=== PATIENT | female | born 1990 | race Caucasian/White ===

== ENCOUNTER → 2020-03-17 11:55 | Outpatient (CLI) | payer OTHER, SELFPAY ==
[2020-02-23 13:50] VITALS: BMI 41.5
[2020-03-17 13:44] LABS: Prolactin 13.5 ng/mL; Thyroid Stim Hormone (TSH) 2.79 uIU/mL (0.358-3.74)
[2020-03-20 03:07] LABS: DHEA Sulfate 98.6 ug/dL (84.8-378.0)
[2020-03-20 11:49] LABS: Testosterone Free 3.7 pg/mL (0.0-4.2)
[2020-03-23 14:26] LABS: 17-Hydroxyprogesterone 40 ng/dL (.)
== END ==
PROVIDERS: PCP Nurse Practitioner Adult Health; Referring Provider Nurse Practitioner Women's Health; Visit Provider Nurse Practitioner Women's Health
DX: N97.0 Female infertility associated with anovulation (principal); N91.4 Secondary oligomenorrhea
CPT/HCPCS: 36415; 82627; 83498; 84146; 84402; 84443; 82626

== ENCOUNTER → 2020-04-19 11:47 | Outpatient (CLI) | payer OTHER, SELFPAY ==
[2020-02-23 13:50] VITALS: BMI 41.5
== END ==
PROVIDERS: PCP Nurse Practitioner Adult Health; Referring Provider Nurse Practitioner Women's Health; Visit Provider Nurse Practitioner Women's Health
DX: N97.0 Female infertility associated with anovulation (principal)
CPT/HCPCS: 36415; 84144

== ENCOUNTER → 2020-06-03 13:17 | Outpatient (CLI) | payer OTHER, SELFPAY ==
[2020-02-23 13:50] VITALS: BMI 41.5
[2020-06-03 15:41] LABS: Progesterone Level 0.36 ng/mL (See Comment)
== END ==
PROVIDERS: PCP Nurse Practitioner Adult Health; Referring Provider Nurse Practitioner Women's Health; Visit Provider Nurse Practitioner Women's Health
DX: N83.9 Noninflammatory disorder of ovary, fallopian tube and broad ligament, unspecified (principal)
CPT/HCPCS: 36415; 84144

== ENCOUNTER → 2020-07-22 13:17 | Outpatient (CLI) | payer OTHER, SELFPAY ==
[2020-02-23 13:50] VITALS: BMI 41.5
== END ==
PROVIDERS: PCP Nurse Practitioner Adult Health; Referring Provider Nurse Practitioner Women's Health; Visit Provider Nurse Practitioner Women's Health
DX: N97.0 Female infertility associated with anovulation (principal)
CPT/HCPCS: 36415; 84144

== ENCOUNTER → 2020-08-20 10:03 | Outpatient (CLI) | payer OTHER, SELFPAY ==
[2020-02-23 13:50] VITALS: BMI 41.5
[2020-08-20 11:16] LABS: Progesterone Level 0.75 ng/mL (See Comment)
== END ==
PROVIDERS: PCP Nurse Practitioner Adult Health; Visit Provider Nurse Practitioner Women's Health
DX: N97.0 Female infertility associated with anovulation (principal)
CPT/HCPCS: 36415; 84144

== ENCOUNTER 2021-03-07 16:31 | Outpatient (CLI) | payer OTHER, SELFPAY ==
[2021-03-07 17:54] LABS: Amphetamine Urine VISTA NEGATIVE (<1000 ng/mL); Barbiturate Urine VISTA NEGATIVE (< 200 ng/mL); Benzodiazepine Urine VISTA NEGATIVE (< 200 ng/mL); Cocaine Urine VISTA NEGATIVE (< 300 ng/mL); Ecstacy Urine VISTA NEGATIVE (< 500 ng/mL); Methadone Urine VISTA NEGATIVE (< 300 ng/mL); PCP Urine VISTA NEGATIVE (< 25 ng/mL); THC Urine VISTA NEGATIVE (< 50 ng/mL); Vista UDS pH Range 6
[2021-03-09 22:06] LABS: Chlamydia By Nucleic Acid AMP Negative (Negative)
[2021-03-09 22:15] LABS: Gonococcus By Nucleic Acid AMP Negative (Negative)
[2021-03-11 19:08] LABS: HPV APTIMA, High Risk Negative (Negative)
== END 2021-03-07 23:59 | disposition short-term general hospital (02) ==
LOC: LABSPEC 16:32
PROVIDERS: PCP Nurse Practitioner Adult Health; Referring Provider Obstetrics & Gynecology; Visit Provider Obstetrics & Gynecology
DX: Z34.90 Encounter for supervision of normal pregnancy, unspecified, unspecified trimester (principal); Z12.4 Encounter for screening for malignant neoplasm of cervix
CPT/HCPCS: 80307; 87086; 87088; 87491; 87591; 87624; 88175; G0145

== ENCOUNTER 2021-03-23 16:29 | Emergency (ER) | payer OTHER, SELFPAY ==
[2021-03-23 16:30] VITALS: BP 150/99; PULSE 91; RESP 18; TEMP 36.5; O2SAT 100; BMI 39.5
--- NOTE | 2021-03-23 17:32 | US_ITS ---
STUDY: ULTRASOUND OF THE FEMALE PELVIS - COMPLETE REASON FOR EXAM: Female, 31 years old. pelvic pain TECHNIQUE: Transabdominal COMPARISON: None. FINDINGS: The uterus is anteverted and is in a midline position. The uterus measures 7.6x4.3 cm. Normal uterine cervix. The endometrium measures 9 mm in thickness, and is hyperechoic. There is no demonstrated endometrial mass. There is no demonstrated myometrial mass. I.U.D. - The patient does not have an I.U.D. The right ovary is visualized. The right ovary measures 2x1.7 cm. There is no right ovarian cyst or ovarian mass. There is no visualized right adnexal mass or complex lesion. There is normal arterial and normal venous vascularity. The left ovary is visualized. The left ovary measures 2.4x1.6 cm. There is no left ovarian cyst or ovarian mass. There is no visualized left adnexal mass or complex lesion. There is normal arterial and normal venous vascularity. There is no fluid in the cul-de-sac. Debris noted in the urinary bladder. US/Transvaginal Non- IMPRESSION: Debris noted in the urinary bladder. Electronically Signed: Babatunde Lacy MD at 19:24 EST Reading Location ID and State: [facility] / [place] , Service support ,
--- NOTE | 2021-03-23 17:56 | ED.VIS.FEGU ---
HPI HPI - Female History of Present Illness Chief Complaint: Abd Pain Narrative Narrative: 31-year-old female presenting with pelvic pain. She states she miscarried on Sunday night. She has been having some spotting and bleeding intermittently. She states is not bleeding through multiple pads a day. She also specifically states she is bleeding through a pad an hour. Patient is presenting today because she is having increasing pelvic pain which is central in the lower pelvis. Patient is not had fever, chills. She has nausea. Denies GI complaints. PFSH PFSH Medical History Generalized anxiety disorder Home Medications sertraline 50 mg tablet 50 mg PO DAILY #90 tablet 02/02/21 [Rx Last Taken Unknown] cholecalciferol (vitamin D3) 125 mcg (5,000 unit) capsule 125 mcg PO DAILY 02/25/21 [History Last Taken Unknown] omeprazole magnesium 20 mg tablet,delayed release 20 mg PO DAILY 02/25/21 [History Last Taken Unknown] prenat.vits,lizzeth,emo-zfjd-sxpnl 1 tab PO DAILY 02/25/21 [History Last Taken Unknown] ondansetron 4 mg PO Q8H PRN #14 tab 03/23/21 [Rx Last Taken Unknown] Allergy/AdvReac Type Severity Reaction Status Date / Time amoxicillin [From Augmentin] Allergy Mild hives Verified 03/23/21 16:30 clavulanic acid Allergy Mild hives Verified 03/23/21 16:30 [From Augmentin] Family History Father Myocardial infarction Systemic mastocytosis Surgical History S/P tonsillectomy Social History adopted: No household members: spouse current occupational status: employed current occupation: [employer] pets and animals: Yes pets and animals: cat(s) and dog(s) Smoking Status: Never smoker alcohol intake: current alcohol intake frequency: holidays/special occasions only details: not while substance use type: does not use caffeine: Yes (minimal) what type of physical activity do you participate in: walking frequency: 3-4 times per week seatbelt use: always do you feel safe at home: Yes 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 ROS ROS ED Constitutional Constitutional ED: Denies chills or fever(s) Eyes Eyes: Denies blurry vision or diplopia ENT ENT ED: Denies rhinorrhea or sore throat Cardiovascular Cardiovascular: Denies chest pain or palpitations Respiratory/Chest Respiratory/Chest: Denies cough or dyspnea Gastrointestinal Gastrointestinal: Reports abdominal pain, nausea and vomiting Genitourinary Genitourinary ED: Denies dysuria or hematuria Musculoskeletal Musculoskeletal: Denies arthralgias or myalgias Integumentary Denies abscess or rash Neurologic Neurologic: Denies headache(s) or paresthesias Psychiatric Psychiatric: Denies anxiety or depression EXAM Physical Exam Const Vital Signs: 03/23/21 16:30 03/23/21 19:03 03/23/21 22:03 Temperature 97.7 F L Temperature Source Temporal Pulse Rate 91 67 Respiratory Rate 18 18 18 Blood Pressure 150/99 H Blood Pressure Mean 116 Pulse Ox 100 99 Oxygen Delivery Method Room Air Room Air Positive well nourished General Appearance ED: NAD; Negative for pallor HEENT Reports moist mucous membranes Negative for trauma Eyes PERRL and EOMs intact bilaterally Cardio regular rate and regular rhythm adnexae non-tender and no adnexal masses Narrative: Pelvic pain in the midline. Abdomen nonperitoneal. Neuro oriented x3 Sensorium / Orientation: alert Psych mental status grossly normal Skin General Skin Exam: Negative for jaundice or pallor MDM MDM MDM Narrative Medical decision making narrative: Blood work was obtained and the patient has a slight leukocytosis of 12.6. Hemoglobin hematocrit are stable. Platelets are normal. Renal function and electrolytes within normal limits. LFTs are normal. Urinalysis is negative for infection but does show some occult blood. Patient is currently having some spotting secondary to miscarriage recently. Transvaginal ultrasound is negative for retained products of conception. It is noted that she has some debris in her urinary bladder. Patient reevaluated and still feeling improved after morphine and Zofran. I did obtain a CT of the abdomen pelvis which did not identify anything within the bladder. Her kidneys and ureters were normal. No kidney stones were found. Patient counseled on these findings and is comfortable being discharged home. She does not wanting for pain but does request something for nausea. Patient will follow up with her DOG HAIR CLIPPER to ensure resolution. Impression: 1. Pelvic pain 2. Nausea/vomiting 3. History of recent miscarriage Lab Data Labs: Laboratory Results - last 24 hr 03/23/21 03/23/21 03/23/21 19:19 19:19 19:50 WBC 12.6 H RBC 4.27 Hgb 13.6 Hct 39.1 MCV 91.6 MCH 31.9 MCHC 34.8 RDW Std Deviation 41.6 RDW Coeff of Jun 12.6 Plt Count 306 MPV 8.1 Immature Gran % (Auto) 0.300 Neut % (Auto) 71.5 H Lymph % (Auto) 22.6 Russell % (Auto) 3.5 Eos % (Auto) 1.7 Baso % (Auto) 0.4 Absolute Neuts (auto) 9.0 H Absolute Lymphs (auto) 2.86 Nucleated RBC % 0 Sodium 141 Potassium 4.3 Chloride 108 H Carbon Dioxide 29.0 Anion Gap 4 L BUN 11 Creatinine 0.68 Estim Creat Clear Calc 120.92 Est GFR (MDRD) Af Amer 129 Est GFR (MDRD) Non-Af 107 BUN/Creatinine Ratio 16.2 Glucose 107 H Calcium 9.2 Total Bilirubin 0.20 AST 20 ALT 17 Alkaline Phosphatase 92 Total Protein 7.5 Albumin 3.5 Globulin 4.0 Albumin/Globulin Ratio 0.9 Urine Color Yellow Urine Clarity Clear Urine pH 7.0 Ur Specific [place] 1.010 Urine Protein 15 H Urine Glucose (UA) Normal Urine Ketones Negative Urine Occult Blood 250 H Urine Nitrite Negative Urine Bilirubin Negative Urine Urobilinogen Normal Ur Leukocyte Esterase 25 H Urine RBC 10-25 SEEN Urine WBC 0-5 SEEN Ur Squamous Epith Cells 0-5 SEEN Urine Bacteria 1+ Urine Mucus 0 SEEN Radiography Diagnostic Testing: Clinical Impression(s) from Imaging Studies Transvaginal US 03/23/21 17:32 IMPRESSION: Debris noted in the urinary bladder. Electronically Signed: Babatunde Lacy MD at 19:24 EST Reading Location ID and State: [facility] / [place] , Service support , Abdomen/Pelvis CT 03/23/21 20:41 Discharge Plan Triage Chief Complaint: Abd Pain Other Complaint: Vag Bleeding ED Provider: Segundo Deshpande Dx/Rx/DC Orders Instructions: ED Abdominal Pain Unkn Cause Fem Prescriptions: New ondansetron 4 mg tablet,disintegrating 4 mg PO Q8H PRN (Reason: nausea and vomiting) Qty: 14 RF: 0 No Action prenat.vits,lizzeth,muc-nbph-wrkic Tablet 1 tab PO DAILY RF: 0 omeprazole magnesium [Prilosec OTC] 20 mg tablet,delayed release (DR/EC) 20 mg PO DAILY RF: 0 cholecalciferol (vitamin D3) 125 mcg (5,000 unit) capsule 125 mcg PO DAILY RF: 0 sertraline [Zoloft] 50 mg tablet 50 mg PO DAILY Qty: 90 RF: 0 Primary Care Provider: Lizbet Ryan NP Referrals: Lizbet Ryan NP, SENIOR CIVIL ENGINEER-C [Primary Care Provider] - Disposition Disposition: Home, Self Care Discharge Date/Time: 03/23/21 22:04
[2021-03-23] MEDS: Ondansetron 4 MG/2 ML Vial IV ×2 (18:17→22:00)
[2021-03-23] MEDS: Morphine 4 MG/ML Syringe IV (18:17)
[2021-03-23 19:03] VITALS: PULSE 67; RESP 18; O2SAT 99
--- NOTE | 2021-03-23 19:04 | ED.RN ---
RN called lab to see if someone could come up and draw patients blood due to being unsuccessful by multiple RNs. Sharyn in lab states Grey has that patient on her list and should be up shortly.
[2021-03-23 19:27] LABS: Absolute Lymphocyte Count 2.86 X10^3/uL (0.83-4.51); Basophil# 0.05 X10^3/uL; Basophil% 0.4 % (0-1); Eosinophil# 0.21 X10^3/uL; Eosinophils% 1.7 % (0-5); Hematocrit 39.1 % (37-47); Hemoglobin 13.6 g/dL (12.0-15.0); Lymphocyte # 2.86 X10^3/ul (0.83-4.51); Lymphocyte % 22.6 % (19-41); Mean Corp Hgb Conc 34.8 g/dL (32-36); Mean Corpuscular Hgb 31.9 pg (27.0-32.0); Mean Corpuscular Volume 91.6 fL (81-99); Mean Platelet Vol. 8.1 fl (6.2-12.0); Monocyte# 0.44 X10^3/uL; Monocyte% 3.5 % (0-10); NRBC Flagged by Analyzer 0 % (0-5); Neutrophil # 9.03 X10^3/uL (2.7-7.7); Neutrophil % 71.5 % (47-70); Platelet Count 306 K/mm3 (150-450); RBC Distribution Width CV 12.6 % (11.6-14.6); RBC Distribution Width SD 41.6 fl (35.1-43.9); Red Blood Count 4.27 M/mm3 (4.2-5.4); White Blood Count 12.6 K/mm3 (4.4-11.0)
[2021-03-23] MEDS: 0.9% Normal Saline 1,000 ML 999 ML IV (19:32)
[2021-03-23 19:46] LABS: ALB/GLOB Ratio 0.9 RATIO (0.9-2.4); AST(SGOT) 20 U/L (15-37); Alanine Aminotransfer ALT/SGPT 17 U/L (13-56); Albumin, Serum 3.5 g/dL (3.2-5.0); Alkaline Phosphatase 92 U/L (45-117); Anion Gap 4 (5-15); BUN 11 mg/dL (7-18); BUN/Creat Ratio 16.2 RATIO (10-20); Calcium,Total 9.2 mg/dL (8.5-10.1); Chloride 108 mmol/L (98-107); Creatinine, Serum 0.68 mg/dL (0.55-1.02); EST Glomerular Filtration Rate 107 mL/min (>60); Est Glom Filt Rate - Afr Amer 129 mL/min (>60); Estimated Creatinine Clearance 120.92 ml/min; Glucose 107 mg/dL (74-106); Potassium 4.3 mmol/L (3.5-5.1); Protein, Total 7.5 g/dL (6.4-8.2); Sodium Level 141 mmol/L (136-145)
[2021-03-23 19:59] LABS: Mucous, Urine 0 SEEN /hpf (<or=2+)
[2021-03-23 20:02] LABS: Color, Urine Yellow (Yellow); Glucose, Dipstick Normal (Normal); Ketone-Dipstick Negative (Negative); Leukocyte Esterase-Dipstick 25 /ul (Negative); Nitrite-Dipstick Negative (Negative); Occult Blood-Urine 250 /ul (Negative); Protein-Dipstick 15 mg/dl (Negative); Urine Bilirubin Dipstick Negative (Negative); Urine Clarity Clear (Clear); Urine Urobilinogen Normal (Normal)
[2021-03-23 20:22] LABS: White Blood Cells 0-5 SEEN /hpf (0-5)
[2021-03-23 20:23] LABS: Red Blood Cells-Urine 10-25 SEEN /hpf (0-5); Squamous Epithelial Cells - UA 0-5 SEEN /hpf (5-10)
[2021-03-23 20:24] LABS: Bacteria 1+ /hpf (None Seen)
--- NOTE | 2021-03-23 20:41 | CT_ITS ---
STUDY: CT Abdomen And Pelvis W/O Contrast Injection 03/23/2021 9:12 PM REASON FOR EXAM: Female, 31 years old. ABDOMINAL PAIN abdominal pain TECHNIQUE: Transaxial images were obtained without oral contrast, and without intravenous contrast. Individualized dose optimization techniques were used for this CT. COMPARISON: None. FINDINGS: The visualized lung bases are unremarkable. The visualized portions of the heart are within normal limits. Normal liver. Normal gallbladder and extrahepatic biliary system. Normal spleen. Normal pancreas. Normal bilateral adrenal glands. No acute findings of the right kidney. No acute findings of the left kidney. Normal visualized stomach. Normal small intestine. Stool throughout the colon. The appendix is visualized and appears normal. There are no acute findings of the abdominal aorta. Normal inferior vena cava. Subcentimeter mesenteric lymph nodes. Normal urinary bladder. Normal visualized uterus. There is an umbilical hernia containing fat. Normal osseous structures. IMPRESSION: (NOT LISTED IN ORDER OF SIGNIFICANCE) There are no acute findings. Other findings as above. Electronically Signed: Babatunde Lacy MD at 21:14 [facility] Reading Location ID and State: [facility] / [place] , Service support , CT/Abdomen/Pelvis without Cont
[2021-03-23 22:03] VITALS: RESP 18
== END 2021-03-23 22:04 | disposition home or self-care (01) ==
PROVIDERS: Emergency Provider Student in an Organized Health Care Education/Training Program; PCP Nurse Practitioner Adult Health; Visit Provider Student in an Organized Health Care Education/Training Program
DX: R10.2 Pelvic and perineal pain (principal); R11.2 Nausea with vomiting, unspecified; D72.829 Elevated white blood cell count, unspecified; F41.1 Generalized anxiety disorder; Z79.899 Other long term (current) drug therapy
CPT/HCPCS: 36415; 74176; 76830; 80053; 81001; 85025; 93976; 96361; 96374; 96375; 96376; 99285; J7030; A4216; J2405

== ENCOUNTER → 2021-06-22 | Outpatient (CLI) | payer OTHER, SELFPAY ==
--- NOTE | 2021-06-22 15:22 | US_ITS ---
STUDY: FIRST TRIMESTER OBSTETRICAL ULTRASOUND REASON FOR EXAM: Female, 31 years old. dating TECHNIQUE: Transvaginal US was obtained to better visualized the ovaries. TECHNICAL QUALITY: Adequate. PRIOR ULTRASOUND: None. FINDINGS: There is visualization of a single gestational sac in a normal intrauterine position. The mean sac diameter (MSD) measures 4 mm, indicating an estimated gestational age (EGA) of 4 weeks, 6 days. The gestational sac shape is within normal limits. There is no demonstrated yolk sac. The placenta is non-visualized. Due to early gestation, the placenta is not seen. There is no demonstrated embryo ( pole The estimated gestation age (EGA) by LMP is 8 weeks, 0 days. The estimated date of delivery (CAROYLN) by LMP is 12.28.22. The estimated gestation age (EGA) by US is 4 weeks, 6 days. The estimated date of delivery (CAROLYN) by US is 1.19.23. The uterus measures 7.7x 3.9 cm. There is no demonstrated uterine fibroid. The cervix is closed. The right ovary measures in cm: 3.4 x 2.3. There is 15mm right ovarian cyst. There is no visualized right adnexal mass or complex lesion. The left ovary measures 3 x 3 cm. There is 18 mm left ovarian cyst. There is no visualized left adnexal mass or complex lesion. There is no fluid in the cul de sac. IMPRESSION: US/Transvaginal w/Preg US IMPRESSION: Small fluid collection within the uterus. Differential diagnosis includes early IUP with embryonic pole and yolk sac below the limits of sonographic resolution, blighted ovum and pseudo-gestational sac. Correlation with serum quantitative beta-hCG and follow up ultrasound is recommended. The possibility of ectopic cannot be excluded on the basis of this exam. Electronically Signed: Babatunde Lacy MD at 16:25 EDT ,
== END | disposition home or self-care (01) ==
LOC: US 15:21
PROVIDERS: PCP Nurse Practitioner Adult Health; Referring Provider Nurse Practitioner Women's Health; Visit Provider Nurse Practitioner Women's Health
DX: N91.2 Amenorrhea, unspecified (principal)
CPT/HCPCS: 76817

== ENCOUNTER → 2021-06-28 | Outpatient (CLI) | payer OTHER, SELFPAY ==
[2021-06-28 09:26] LABS: hCG Titer Quant., Serum 9823 mIU/mL (1-3)
== END | disposition home or self-care (01) ==
LOC: LAB 08:04
PROVIDERS: PCP Nurse Practitioner Family; Referring Provider Obstetrics & Gynecology; Visit Provider Obstetrics & Gynecology
DX: O36.80X0 Pregnancy with inconclusive fetal viability, not applicable or unspecified (principal)
CPT/HCPCS: 36415; 84702

== ENCOUNTER → 2021-06-30 | Outpatient (CLI) | payer OTHER, SELFPAY ==
[2021-06-30 09:23] LABS: hCG Titer Quant., Serum 15361 mIU/mL (1-3)
== END | disposition home or self-care (01) ==
LOC: LAB 08:06
PROVIDERS: PCP Nurse Practitioner Family; Referring Provider Obstetrics & Gynecology; Visit Provider Obstetrics & Gynecology
DX: O36.80X0 Pregnancy with inconclusive fetal viability, not applicable or unspecified (principal)
CPT/HCPCS: 36415; 84702

== ENCOUNTER → 2021-07-07 | Outpatient (CLI) | payer OTHER, SELFPAY ==
--- NOTE | 2021-07-07 12:56 | US_ITS ---
STUDY: FIRST TRIMESTER OBSTETRICAL ULTRASOUND REASON FOR EXAM: Female, 31 years old viability LMP: 05/19/2021 TECHNIQUE: Transvaginal TECHNICAL QUALITY: Adequate. PRIOR ULTRASOUND: Comparison made with prior study of 06/22/2021. FINDINGS: There is visualization of a single gestational sac in a normal intrauterine position. The mean sac diameter (MSD) measures 2.33 cm, indicating an estimated gestational age (EGA) of 7 weeks, 2 days. The gestational sac shape is within normal limits. There is a visualized yolk sac. The yolk sac measures 3.8 mm. The placenta is non-visualized. There is visualization of a live embryo. The crown-rump length (CRL) measures 8.5 mm, indicating an estimated gestational age (EGA) of 6 weeks, 6 days. There is demonstrated cardiac activity with a heart rate of 138 bpm. The estimated gestation age (EGA) by LMP is 7 weeks, 0 days. The estimated date of delivery (CAROLYN) by LMP is 02/23/2022. The estimated gestation age (EGA) by US is 7 weeks, 0 days. The estimated date of delivery (CAROLYN) by US is 02/23/2022. The uterus measures 9.9 cm x 5.4 cm x 4.4 cm. There is no demonstrated uterine fibroid. The cervix is closed. The right ovary measures 1.9 cm x 1.6 cm x 2.2 cm. There is no right ovarian cyst. There is no visualized right adnexal mass or complex lesion. The left ovary measures 2.3 cm x 2.6 cm x 1.2 cm. There is no left ovarian cyst. There is no visualized left adnexal mass or complex lesion. There is no fluid in the cul de sac. US/Transvaginal w/Preg US IMPRESSION: Single live intrauterine gestation with a mean gestational age of 7 weeks. Electronically Signed: Peña Murrell MD at 15:32 EDT ,
== END | disposition home or self-care (01) ==
LOC: OPUS 12:54 → US 12:56
PROVIDERS: PCP Nurse Practitioner Family; Referring Provider Obstetrics & Gynecology; Visit Provider Obstetrics & Gynecology
DX: O26.859 Spotting complicating pregnancy, unspecified trimester (principal)
CPT/HCPCS: 76817

== ENCOUNTER → 2021-07-20 | Outpatient (CLI) | payer OTHER, SELFPAY ==
[2021-07-21 22:07] LABS: Chlamydia By Nucleic Acid AMP Negative (Negative)
[2021-07-21 22:13] LABS: Gonococcus By Nucleic Acid AMP Negative (Negative)
== END | disposition home or self-care (01) ==
LOC: LABSPEC 07-21 08:42
PROVIDERS: PCP Nurse Practitioner Family; Visit Provider Obstetrics & Gynecology
DX: Z34.80 Encounter for supervision of other normal pregnancy, unspecified trimester (principal)
CPT/HCPCS: 87491; 87591

== ENCOUNTER → 2021-08-03 | Outpatient (CLI) | payer OTHER, SELFPAY ==
[2021-08-03 09:34] LABS: Absolute Lymphocyte Count 2.21 X10^3/uL (0.83-4.51); Absolute Neutrophil Count 5.3 X10^3/uL (2.0-7.7); Basophil# 0.02 X10^3/uL; Basophil% 0.2 % (0-1); Eosinophil# 0.24 X10^3/uL; Eosinophils% 2.9 % (0-5); Hematocrit 38.8 % (37-47); Hemoglobin 12.8 g/dL (12.0-15.0); Lymphocyte # 2.21 X10^3/ul (0.83-4.51); Mean Corpuscular Hgb 30.8 pg (27.0-32.0); Mean Corpuscular Volume 93.5 fL (81-99); Mean Platelet Vol. 8.4 fl (6.2-12.0); Monocyte# 0.37 X10^3/uL; Monocyte% 4.5 % (0-10); NRBC Flagged by Analyzer 0 % (0-5); Neutrophil # 5.33 X10^3/uL (2.7-7.7); Neutrophil % 65.2 % (47-70); Platelet Count 261 K/mm3 (150-450); RBC Distribution Width CV 12.6 % (11.6-14.6); RBC Distribution Width SD 43.5 fl (35.1-43.9); Red Blood Count 4.15 M/mm3 (4.2-5.4); White Blood Count 8.2 K/mm3 (4.4-11.0)
[2021-08-03 09:52] LABS: Amphetamine Urine VISTA NEGATIVE (<1000 ng/mL); Barbiturate Urine VISTA NEGATIVE (< 200 ng/mL); Benzodiazepine Urine VISTA NEGATIVE (< 200 ng/mL); Cocaine Urine VISTA NEGATIVE (< 300 ng/mL); Ecstacy Urine VISTA NEGATIVE (< 500 ng/mL); Methadone Urine VISTA NEGATIVE (< 300 ng/mL); PCP Urine VISTA NEGATIVE (< 25 ng/mL); THC Urine VISTA NEGATIVE (< 50 ng/mL); Vista UDS pH Range 6
[2021-08-03 10:03] LABS: Glucose Challenge Gest 1H 50g 139 mg/dL (70-140)
[2021-08-03 10:47] LABS: HIV - WCH Non-Reactive (Nonreactive); Hepatitis B Surface Antigen Non-Reactive (Nonreactive); Hepatitis C Antibody Non-Reactive (Nonreactive); Rubella IgG Reactive (Nonreactive); Syphilis Antibodies Non-reactive
== END | disposition home or self-care (01) ==
PROVIDERS: PCP Nurse Practitioner Family; Referring Provider Obstetrics & Gynecology; Visit Provider Obstetrics & Gynecology
DX: Z34.80 Encounter for supervision of other normal pregnancy, unspecified trimester (principal)
CPT/HCPCS: 36415; 80307; 82950; 85025; 86703; 86762; 86780; 86803; 86850; 86900; 86901; 87086; 87088; 87340

== ENCOUNTER → 2021-08-11 | Outpatient (CLI) | payer OTHER, SELFPAY ==
[2021-08-11 07:52] LABS: Glucose GTT-Gestation. Fasting 96 mg/dL (<105)
[2021-08-11 09:24] LABS: Glucose GTT-Gestational 1 Hr 174 mg/dL (<190)
[2021-08-11 10:13] LABS: Glucose GTT-Gestational 2 Hr 125 mg/dL (<165)
[2021-08-11 11:01] LABS: Glucose GTT-Gestational 3 Hr 61 L (<145)
== END | disposition home or self-care (01) ==
LOC: LAB 06:54
PROVIDERS: PCP Nurse Practitioner Family; Visit Provider Obstetrics & Gynecology
DX: Z13.1 Encounter for screening for diabetes mellitus (principal)
CPT/HCPCS: 36415; 82951; 82952

== ENCOUNTER → 2021-11-17 | Outpatient (CLI) | payer OTHER, SELFPAY ==
[2021-11-17 08:52] LABS: Absolute Neutrophil Count 9.5 X10^3/uL (2.0-7.7); Basophil# 0.03 X10^3/uL; Basophil% 0.2 % (0-1); Eosinophil# 0.16 X10^3/uL; Eosinophils% 1.3 % (0-5); Hematocrit 34.1 % (37-47); Hemoglobin 11.2 g/dL (12.0-15.0); Lymphocyte % 19.8 % (19-41); Mean Corp Hgb Conc 32.8 g/dL (32-36); Mean Corpuscular Hgb 31.9 pg (27.0-32.0); Mean Corpuscular Volume 97.2 fL (81-99); Mean Platelet Vol. 8.5 fl (6.2-12.0); Monocyte# 0.41 X10^3/uL; Monocyte% 3.2 % (0-10); NRBC Flagged by Analyzer 0 % (0-5); Neutrophil # 9.45 X10^3/uL (2.7-7.7); Neutrophil % 74.9 % (47-70); Platelet Count 257 K/mm3 (150-450); RBC Distribution Width CV 13.7 % (11.6-14.6); RBC Distribution Width SD 48.6 fl (35.1-43.9); Red Blood Count 3.51 M/mm3 (4.2-5.4); White Blood Count 12.6 K/mm3 (4.4-11.0)
[2021-11-17 09:24] LABS: Glucose Challenge Gest 1H 50g 163 mg/dL (70-140)
== END | disposition home or self-care (01) ==
LOC: LAB 07:54
PROVIDERS: PCP Nurse Practitioner Family; Referring Provider Obstetrics & Gynecology; Visit Provider Obstetrics & Gynecology
DX: O99.210 Obesity complicating pregnancy, unspecified trimester (principal); E66.9 Obesity, unspecified; Z3A.00 Weeks of gestation of pregnancy not specified
CPT/HCPCS: 36415; 82950; 85025

== ENCOUNTER → 2021-11-24 | Outpatient (CLI) | payer OTHER, SELFPAY ==
[2021-11-24 07:42] LABS: Glucose GTT-Gestation. Fasting 99 mg/dL (<105)
[2021-11-24 08:59] LABS: Glucose GTT-Gestational 1 Hr 189 mg/dL (<190)
[2021-11-24 10:25] LABS: Glucose GTT-Gestational 2 Hr 130 mg/dL (<165)
[2021-11-24 11:19] LABS: Glucose GTT-Gestational 3 Hr 58 L (<145)
== END | disposition home or self-care (01) ==
LOC: LAB 07:05
PROVIDERS: PCP Nurse Practitioner Family; Referring Provider Obstetrics & Gynecology; Visit Provider Obstetrics & Gynecology
DX: Z13.1 Encounter for screening for diabetes mellitus (principal)
CPT/HCPCS: 36415; 82951; 82952

== ENCOUNTER 2021-12-14 08:45 | Outpatient (RCR) | payer OTHER, SELFPAY | END 2022-01-04 23:59 | LOC: DC 08:45 | PROVIDERS: PCP Nurse Practitioner Family; Referring Provider Obstetrics & Gynecology; Visit Provider Obstetrics & Gynecology | DX: O24.419 Gestational diabetes mellitus in pregnancy, unspecified control (principal); Z3A.00 Weeks of gestation of pregnancy not specified | CPT/HCPCS: 97802; 97803 ==

== ENCOUNTER → 2022-01-02 | Outpatient (CLI) | payer OTHER, SELFPAY ==
--- NOTE | 2022-01-02 12:22 | US_ITS ---
STUDY: OBSTETRICAL ULTRASOUND - BIOPHYSICAL PROFILE REASON FOR EXAM: Female, 32 years old well being, growth LMP: 05/19/2021. PRIOR ULTRASOUND: Comparison is made with prior study dated 07/07/2021. TECHNIQUE: Transabdominal TECHNICAL QUALITY: Adequate. FINDINGS: There is a single intrauterine fetus. The fetus is in a breech presentation. There is demonstrated cardiac activity with a heart rate of 148 bpm. There is a normal amniotic fluid volume. The largest amniotic fluid pocket measures 5.6 cm. The amniotic fluid index (KORI) is 18.23 cm. The placenta is anterior in location and is not low lying. There are Grade 0 placental changes. Age by LMP: 32 weeks, 4 days. CAROLYN by LMP: 02/23/2022. BIOPHYSICAL PROFILE: Breathing Movements (FBM): 2 Gross Body Movements (GBM): 2 Tone (FT): 2 Amniotic Fluid Volume (AFV): 2 TOTAL SCORE: 8 / 8 IMPRESSION: Normal biophysical profile of 8/8. Electronically Signed: Peña Murrell MD at 10:04 EST , STUDY: SECOND AND THIRD TRIMESTER OBSTETRICAL ULTRASOUND - LIMITED REASON FOR EXAM: Female, 32 years old well being, growth LMP: 05/19/2021. PRIOR ULTRASOUND: Comparison is made with prior study dated 07/07/2021. TECHNIQUE: Transabdominal TECHNICAL QUALITY: Adequate. FINDINGS: There is a single intrauterine fetus. The fetus is in a breech presentation. There is demonstrated cardiac activity with a heart rate of 148 bpm. There is a normal amniotic fluid volume. The largest amniotic fluid pocket measures 5.6 cm. The amniotic fluid index (KORI) is 18.23 cm. The placenta is anterior in location and is not low lying. There are Grade 0 placental changes. The cervix measures 3.7 cm in length. BIOMETRY: BPD: 8.3 cm: 33 weeks, 3 days HC: 32.39 cm: 36 weeks, 5 days AC: 28.35 cm: 32 weeks, 3 days FL: 6.13 cm: 31 weeks, 6 days Age by LMP: 32 weeks, 4 days. CAROLYN by LMP: 02/23/2022. age by prior US: 32 weeks, 4 days. CAROLYN by prior US: 02/23/2022. age by current US: 34 weeks, 0 days. CAROLYN by current US: 02/13/2022. Estimated weight: 1980 grams, +/- 297 grams, 36.9 percentile. US/Biophysical Prof W/O Non Stres IMPRESSION: Single live intrauterine gestation with a mean gestational age of 32 weeks and 4 days. The measurements obtained today fall within the normal expected range. Electronically Signed: Peña Murrell MD at 10:17 EST ,
== END | disposition home or self-care (01) ==
LOC: OPUS 12:17
PROVIDERS: PCP Nurse Practitioner Family; Referring Provider Obstetrics & Gynecology; Visit Provider Obstetrics & Gynecology
DX: O24.419 Gestational diabetes mellitus in pregnancy, unspecified control (principal); Z3A.32 32 weeks gestation of pregnancy
CPT/HCPCS: 76816; 76819

== ENCOUNTER 2022-01-09 08:52 | Outpatient (CLI) | payer OTHER, SELFPAY ==
--- NOTE | 2022-01-09 08:54 | US_ITS ---
STUDY: OBSTETRICAL ULTRASOUND - BIOPHYSICAL PROFILE REASON FOR EXAM: Female, 32 years old WELL BEING LMP: 05/19/2021. PRIOR ULTRASOUND: Comparison is made with prior study 12/25/2021. TECHNIQUE: Transabdominal TECHNICAL QUALITY: Adequate. FINDINGS: There is a single intrauterine fetus. The fetus is in a breech presentation. There is demonstrated cardiac activity with a heart rate of 136 bpm. There is a normal amniotic fluid volume. The largest amniotic fluid pocket measures 4.0 cm. The amniotic fluid index (KORI) is 11.6 cm. The placenta is anterior in location and is not low lying. There are Grade 0 placental changes. Age by LMP: 33 weeks, 4 days. CAROLYN by LMP: 02/23/2022. BIOPHYSICAL PROFILE: Breathing Movements (FBM): 2 Gross Body Movements (GBM): 2 Tone (FT): 2 Amniotic Fluid Volume (AFV): 2 TOTAL SCORE: US/Biophysical Prof W/O Non Stres IMPRESSION: Normal biophysical profile of 09/12. Electronically Signed: Peña Murrell MD at 13:46 EST ,
== END 2022-01-09 23:59 | disposition home or self-care (01) ==
LOC: OPUS 08:53
PROVIDERS: PCP Nurse Practitioner Family; Visit Provider Obstetrics & Gynecology
DX: Z34.90 Encounter for supervision of normal pregnancy, unspecified, unspecified trimester (principal)
CPT/HCPCS: 76819

== ENCOUNTER → 2022-01-16 | Outpatient (CLI) | payer OTHER, SELFPAY ==
--- NOTE | 2022-01-16 14:32 | US_ITS ---
STUDY: OBSTETRICAL ULTRASOUND - BIOPHYSICAL PROFILE REASON FOR EXAM: Female, 32 years old wellbeing LMP: 05/19/2021. PRIOR ULTRASOUND: Comparison is made with prior study dated 01/09/2022. TECHNIQUE: Transabdominal TECHNICAL QUALITY: Adequate. FINDINGS: There is a single intrauterine fetus. The fetus is in a breech presentation. There is demonstrated cardiac activity with a heart rate of 153 bpm. There is a normal amniotic fluid volume. The largest amniotic fluid pocket measures 4.3 cm x 2.4 cm. The amniotic fluid index (KORI) is 14.6 cm. The placenta is anterior in location and is not low lying. There are Grade 0 placental changes. Age by LMP: 34 weeks, 4 days. CAROLYN by LMP: 02/23/2022. BIOPHYSICAL PROFILE: Breathing Movements (FBM): 2 Gross Body Movements (GBM): 2 Tone (FT): 2 Amniotic Fluid Volume (AFV): 2 TOTAL SCORE: 8 / 8 US/Biophysical Prof W/O Non Stres IMPRESSION: Normal biophysical profile of 8/8. Electronically Signed: Peña Murrell MD at 15:42 EST ,
== END | disposition home or self-care (01) ==
LOC: OPUS 14:28
PROVIDERS: PCP Nurse Practitioner Family; Referring Provider Obstetrics & Gynecology; Visit Provider Obstetrics & Gynecology
DX: O24.419 Gestational diabetes mellitus in pregnancy, unspecified control (principal)
CPT/HCPCS: 76819

== ENCOUNTER → 2022-01-23 | Outpatient (CLI) | payer OTHER, SELFPAY ==
--- NOTE | 2022-01-23 08:49 | US_ITS ---
STUDY: OBSTETRICAL ULTRASOUND - BIOPHYSICAL PROFILE REASON FOR EXAM: Female, 32 years old well being LMP: 05/19/2021. PRIOR ULTRASOUND: Comparison is made with prior study dated 01/16/2022. TECHNIQUE: Transabdominal TECHNICAL QUALITY: Adequate. FINDINGS: There is a single intrauterine fetus. The fetus is in a breech presentation. There is demonstrated cardiac activity with a heart rate of 144 bpm. There is a normal amniotic fluid volume. The largest amniotic fluid pocket measures cm. The amniotic fluid index (KORI) is 6.4 cm. The placenta is 17.6 There are Grade 0 placental changes. Age by LMP: 35 weeks, 4 days. CAROLYN by LMP: 02/23/2022. BIOPHYSICAL PROFILE: Breathing Movements (FBM): 2 Gross Body Movements (GBM): 2 Tone (FT): 2 Amniotic Fluid Volume (AFV): 2 TOTAL SCORE: 8 / 8 US/Biophysical Prof W/O Non Stres IMPRESSION: Normal biophysical profile of 8. Electronically Signed: Peña Murrell MD at 10:58 EST ,
== END | disposition home or self-care (01) ==
LOC: OPUS 08:42
PROVIDERS: PCP Nurse Practitioner Family; Referring Provider Obstetrics & Gynecology; Visit Provider Obstetrics & Gynecology
DX: O24.419 Gestational diabetes mellitus in pregnancy, unspecified control (principal); Z3A.00 Weeks of gestation of pregnancy not specified
CPT/HCPCS: 76819

== ENCOUNTER → 2022-01-27 | Outpatient (CLI) | payer OTHER, SELFPAY | END | disposition home or self-care (01) | LOC: LABSPEC 16:33 | PROVIDERS: PCP Nurse Practitioner Family; Referring Provider Obstetrics & Gynecology; Visit Provider Obstetrics & Gynecology | DX: Z34.90 Encounter for supervision of normal pregnancy, unspecified, unspecified trimester (principal) | CPT/HCPCS: 87081 ==

== ENCOUNTER → 2022-01-31 | Outpatient (CLI) | payer OTHER, SELFPAY ==
--- NOTE | 2022-01-31 08:58 | US_ITS ---
STUDY: OBSTETRICAL ULTRASOUND - BIOPHYSICAL PROFILE REASON FOR EXAM: Female, 32 years old well being LMP: 05/19/2021. PRIOR ULTRASOUND: 01/23/2022. TECHNIQUE: Transabdominal. TECHNICAL QUALITY: Adequate. FINDINGS: There is a single intrauterine fetus. The fetus is remains in breech presentation. There is demonstrated cardiac activity with a heart rate of 150 bpm. There is a normal amniotic fluid volume. The largest amniotic fluid pocket measures 7.88 cm. The amniotic fluid index (KORI) is 15.91 cm. The placenta is anterior, not low-lying and left lateral. There are Grade 1 placental changes. Age by LMP: 36 weeks, 5 days. CAROLYN by LMP: 02/23/2022. age by prior US: 38 weeks, 1 days. CAROLYN by prior US: 02/13/2022. age by current US: 37 weeks, 0 days. CAROLYN by current US: 02/21/2022. Biometry: BPD: 9.04 cm corresponding to 36 weeks and 5 days. HC: 34.04 cm corresponding to 39 weeks and 1 day. AC: 31.55 cm corresponding to 35 weeks and 3 days. FL: 6.99 cm corresponding to 35 weeks and 6 days. CI: 75.43%. FL/AC: 22.15%. FL/BPD: 77.28%. HC/AC: 1.08 Estimated weight: 2800 g +/- 420 g corresponding to 33.63%. BIOPHYSICAL PROFILE: Breathing Movements (FBM): 2 Gross Body Movements (GBM): 2 Tone (FT): 2 Amniotic Fluid Volume (AFV): 2 TOTAL SCORE: US/Biophysical Prof W/O Non Stres IMPRESSION: Normal biophysical profile of 09/12. Electronically Signed: Sebastian Amador MD at 11:07 EST ,
--- NOTE | 2022-01-31 09:00 | US_ITS ---
STUDY: OBSTETRICAL ULTRASOUND - BIOPHYSICAL PROFILE REASON FOR EXAM: Female, 32 years old well being LMP: 05/19/2021. PRIOR ULTRASOUND: 01/23/2022. TECHNIQUE: Transabdominal. TECHNICAL QUALITY: Adequate. FINDINGS: There is a single intrauterine fetus. The fetus is remains in breech presentation. There is demonstrated cardiac activity with a heart rate of 150 bpm. There is a normal amniotic fluid volume. The largest amniotic fluid pocket measures 7.88 cm. The amniotic fluid index (KORI) is 15.91 cm. The placenta is anterior, not low-lying and left lateral. There are Grade 1 placental changes. Age by LMP: 36 weeks, 5 days. CAROLYN by LMP: 02/23/2022. age by prior US: 38 weeks, 1 days. CAROLYN by prior US: 02/13/2022. age by current US: 37 weeks, 0 days. CAROLYN by current US: 02/21/2022. Biometry: BPD: 9.04 cm corresponding to 36 weeks and 5 days. HC: 34.04 cm corresponding to 39 weeks and 1 day. AC: 31.55 cm corresponding to 35 weeks and 3 days. FL: 6.99 cm corresponding to 35 weeks and 6 days. CI: 75.43%. FL/AC: 22.15%. FL/BPD: 77.28%. HC/AC: 1.08 Estimated weight: 2800 g +/- 420 g corresponding to 33.63%. BIOPHYSICAL PROFILE: Breathing Movements (FBM): 2 Gross Body Movements (GBM): 2 Tone (FT): 2 Amniotic Fluid Volume (AFV): 2 TOTAL SCORE: US/OB Limited With Biometrics IMPRESSION: Normal biophysical profile of 09/12. Electronically Signed: Sebastian Amador MD at 11:07 EST ,
== END | disposition home or self-care (01) ==
LOC: OPUS 08:57
PROVIDERS: PCP Nurse Practitioner Family; Visit Provider Obstetrics & Gynecology
DX: O24.419 Gestational diabetes mellitus in pregnancy, unspecified control (principal); Z3A.37 37 weeks gestation of pregnancy
CPT/HCPCS: 76816; 76819

== ENCOUNTER → 2022-02-07 | Outpatient (CLI) | payer OTHER, SELFPAY ==
--- NOTE | 2022-02-07 12:23 | US_ITS ---
HISTORY: well being. TECHNIQUE: Transabdominal pelvic ultrasound was performed. 40 images. COMPARISON: 01/31/2022. FINDINGS: INTRAUTERINE GESTATION(s): Single. PRESENTATION: Breech. PLACENTA: Anterior, grade 1. No placenta previa. HEART MOTION: 166 bpm. AMNIOTIC FLUID INDEX (KORI): 14.2 cm. Largest fluid pocket 6.9 cm. BIOPHYSICAL PROFILE (BPP): 09/12 -- Breathin/2. -- Movement: 2/2. -- Tone: 2/2. --KORI: 2/2. US/Biophysical Prof W/O Non Stres IMPRESSION: Single living intrauterine in breech presentation with a normal biophysical profile score. Electronically Signed: Shalonda Garcia MD at 15:58 EST ,
== END | disposition home or self-care (01) ==
PROVIDERS: PCP Nurse Practitioner Family; Visit Provider Obstetrics & Gynecology
DX: O24.419 Gestational diabetes mellitus in pregnancy, unspecified control (principal)
CPT/HCPCS: 76819

== ENCOUNTER → 2022-02-13 | Outpatient (CLI) | payer OTHER, SELFPAY ==
--- NOTE | 2022-02-13 12:21 | US_ITS ---
STUDY: Ultrasound OB Biophysical Profile REASON FOR EXAM: Female, 32 years old well being TECHNIQUE: Transabdominal PRIOR ULTRASOUND: 02/07/2022. FINDINGS: There is a single intrauterine fetus. The fetus is in a breech presentation. There is demonstrated cardiac activity with a heart rate of 137 bpm. There is a normal amniotic fluid volume. The largest amniotic fluid pocket measures 19 cm. The amniotic fluid index (KORI) is 8 cm. The placenta is anterior and not low-lying. There are Grade 1 placental changes. BIOPHYSICAL PROFILE (BPP): 09/12 -- Breathin/2. -- Movement: 2/2. -- Tone: 2/2. --KORI: 2/2. US/Biophysical Prof W/O Non Stres IMPRESSION: Normal BPP. . Electronically Signed: Archie Palacios MD at 17:34 EST ,
== END | disposition home or self-care (01) ==
LOC: OPUS 12:16
PROVIDERS: PCP Nurse Practitioner Family; Visit Provider Obstetrics & Gynecology
DX: O24.419 Gestational diabetes mellitus in pregnancy, unspecified control (principal)
CPT/HCPCS: 76819

== ENCOUNTER 2022-02-16 09:35 | Inpatient (IN) | payer OTHER, SELFPAY ==
[2022-02-16] VITALS (16 sets, daily range): BP systolic 84–142; BP diastolic 54–92; PULSE 77–100; RESP 10–18; TEMP 36.2–36.9; O2SAT 15–100; BMI 40.5
[2022-02-16] MEDS: Lactated Ringers 1,000 ML 999 ML IV (10:15)
[2022-02-16 10:16] LABS: Bedside Glucose 186 mg/dL (74-106)
[2022-02-16] MEDS: Acetaminophen 500 MG Tablet 1000 MG PO ×3 (10:23→22:11)
[2022-02-16 10:28] LABS: Absolute Neutrophil Count 8.8 X10^3/uL (2.0-7.7); Basophil# 0.02 X10^3/uL; Basophil% 0.2 % (0-1); Eosinophil# 0.12 X10^3/uL; Hematocrit 39.5 % (37-47); Hemoglobin 12.9 g/dL (12.0-15.0); Mean Corp Hgb Conc 32.7 g/dL (32-36); Mean Platelet Vol. 8.8 fl (6.2-12.0); Monocyte# 0.36 X10^3/uL; NRBC Flagged by Analyzer 0 % (0-5); Neutrophil # 8.84 X10^3/uL (2.7-7.7); Neutrophil % 74.5 % (47-70); Platelet Count 216 K/mm3 (150-450); RBC Distribution Width CV 13.2 % (11.6-14.6); RBC Distribution Width SD 46.3 fl (35.1-43.9); Red Blood Count 4.16 M/mm3 (4.2-5.4); White Blood Count 11.9 K/mm3 (4.4-11.0)
[2022-02-16] MEDS: Lactated Ringers 1,000 ML 150 ML IV (11:19)
[2022-02-16 11:21] LABS: Bedside Glucose 93 mg/dL (74-106)
[2022-02-16] MEDS: Sodium Citrate/Citric Acid 30 ML UDC PO (11:57)
[2022-02-16] MEDS: Oxytocin 15 Units/NS 250ml 15 UNITS/250 ML IV.SOLN 83 UNITS IV (13:30)
[2022-02-16] MEDS: Ketorolac 30 MG/ML Syringe IV ×2 (13:55→20:04)
[2022-02-16 14:36] LABS: Bedside Glucose 80 mg/dL (74-106)
[2022-02-16] MEDS: Lactated Ringers 1,000 ML 100 ML IV (16:36)
--- NOTE | 2022-02-16 22:41 | OP.PCM_ITS ---
Assessment & Plan (1) Obesity affecting : COMMENT: BMI 40. 1 tm gct ordered. encouraged healthy weight gain (2) : QUALIFIERS: Weeks of gestation: 37 weeks Qualified Code(s): Z3A.37 - 37 weeks gestation of COMMENT: GBS negative, anatomy nl, repeat spine views in 2 wks. offered AFP screening if desired. declines carrier/genetic screen;no (3) Supervision of other normal : COMMENT: PRR CAROLYN 02/23/22 Sp:Eduard (4) Gestational diabetes mellitus (GDM): COMMENT: nutrition consult. on INSULIN, 01/09 BPP nl, 01/23 nl BPP. 01/31 nl BPP, 02/07/22 nl BPP. 02/13 nl BPP deliver at 39 weeks. (5) Need for Tdap vaccination: COMMENT: Given 12/02/21 (6) KORI (amniotic fluid index) borderline low: COMMENT: 6.4 on 01/23- will rpt 01/30 (7) Breech presentation: COMMENT: PLTCS scheduled 02/16/22 @ 12 with SM (8) Lab test positive for detection of COVID-19 virus: COMMENT: 81mg asa, 32 & 36 wk US (9) Generalized anxiety disorder: COMMENT: zoloft. stable (10) delivery delivered: COMMENT: boy 39 ltcs breech gdma2 Maternal Data Information CAROLYN Calculator Estimated Delivery Date Method Current WG Current Estimate 02/23/22 Ultrasound #1 39w 0d Final CAROLYN Source: LMP Details Operative Information Date of Procedure: 02/16/22 Pre-Operative Diagnosis: Previous Post-Operative Diagnosis: same Indications for : Repeat Elective Classification: Scheduled Type of Anesthesia: Spinal Special Medications: none Antibiotic Given: Ancef 2 grams IV x1 Drain: Thorne to straight drain Estimated Blood Loss: 800 Fluids Replaced: crystalloid Findings Description of Procedure: Spinal anesthesia was placed without difficulty. Thorne catheter was placed. The patient was placed in the dorsal supine position with leftward tilt. Patient was prepped and draped in the normal sterile fashion. Pfannenstiel skin incision was made with the scalpel and carried through to the underlying layer of fascia with the scalpel. Fascia was nicked in the midline and the incision extended laterally. The rectus bellies were dissected off superiorly and inferiorly with out complication both sharply and bluntly. The peritoneum was entered digitally. The incision was stretched and a low transverse uterine incision was made with the scalpel. The buttox was delivered atraumatically and the right and left legs were swept anteriorly and delivered, followed by the body and the arms which were swept anteriorly and delivered. Gentle traction was placed on the mentum to flex the head which was delivered without complication. The cord was clamped and cut and the infant was handed off to awaiting nurse. The placenta was delivered spontaneously immediately following and was noted to be intact and have a three-vessel cord. The uterus was exteriorized cleared of all clots and debris, and the incision was closed in a double layer closure using #1 Monocryl. The ovaries and fallopian tubes were noted to be within normal limits. The uterus was returned to the maternal abdomen and gutters were cleared of all clots and debris. The peritoneum was closed with 3-0 Monocryl in a running fashion. Gloves were changed prior to fascial closure. Fascia was closed with 0 PDS in a running fashion. Subcutaneous tissue was copiously irrigated and the skin was closed with 3-0 Monocryl in a subcuticular fashion. Mepilex dressing was applied without complication. Patient was taken to recovery in stable condition. It was discussed with the patient that based on the clinical information obtained during this encounter, combined with her history, at this time I would recommend vaginal or cesareans for future deliveries if further pregnancies are desired. Amniotic Membrane Rupture Type: Artificial Amniotic Fluid Description: Clear Placenta Disposition: [facility] Cord Vessel Description: 3 Vessels Cord Entanglement: None Delayed Cord Clamping: Yes Complications Risks of Surgery Discussed w/Patient: Bleeding, Infection, Need for Future C- Sections and Injury to surrounding structure(s) including bowel and bladder Vaginal Delivery Complication Complications: None Admit VTE Documentation VTE Present on Admission: No VTE Mechan Device Prophylaxis: SCD's Procedures Urinary/Genital [id number]: [id number] Delivery [facility]
--- NOTE | 2022-02-16 22:41 | HP.PCM_ITS ---
History and Physical Intake Visit Reasons:?est ob 38w/NST Chief Complaint: 38 Week OB/ NST Financial Operations Analyst Required: No Is patient in pain?: No Allergies amoxicillin [From Augmentin] Allergy (Mild, Verified 02/10/22 15:27) hivesclavulanic acid [From Augmentin] Allergy (Mild, Verified 02/10/22 15:27) hives Medications cholecalciferol (vitamin D3) 125 mcg (5,000 unit) capsule 125 mcg PO DAILY 02/25/21 [History Confirmed 02/10/22] omeprazole magnesium 20 mg tablet,delayed release (Prilosec OTC) 20 mg PO DAILY 02/25/21 [History Confirmed 02/10/22] prenat.vits,lizzeth,gfl-vlbv-itiip 1 tab PO DAILY 02/25/21 [History Confirmed 02/10/22] lancets #100 ea 11/24/21 [Rx Confirmed 02/10/22] blood-glucose meter #1 ea 11/25/21 [Rx Confirmed 02/10/22] lancets #100 ea 11/25/21 [Rx Confirmed 02/10/22] blood sugar diagnostic (Blood Glucose Test strips) #150 ea 12/05/21 [Rx Confirmed 02/10/22] aspirin 81 mg chewable tablet (Anneliese Chewable Low Dose Aspirin) 81 mg PO DAILY 12/22/21 [History Confirmed 02/10/22] blood-glucose meter (Accu-Chek Guide Me Glucose Meter) ##1 12/26/21 [Rx Confirmed 02/10/22] insulin NPH isoph U-100 human 100 unit/mL subcutaneous suspension (Novolin N NPH U-100 Insulin isophane) 30 unit subcut QPM 01/19/22 [History Confirmed 02/10/22] sertraline 50 mg tablet (Zoloft) 50 mg PO DAILY #90 tabs 01/22/22 [Rx Confirmed 02/10/22] blood sugar diagnostic (Blood Glucose Test strips) #150 ea 01/31/22 [Rx Confirmed 02/10/22] Last Menstrual Period: 01/08/21 Zika: Zika virus screening: Negative : No PFSH PFSH Medical History? Generalized anxiety disorder History of spontaneous Lab test positive for detection of COVID-19 virus Surgical History? S/P tonsillectomy Family History? Father Myocardial infarction Systemic mastocytosis Social History? adopted:? No household members:? spouse current occupational status:? employed current occupation:? [employer] pets and animals:? Yes pets and animals: cat(s) and dog(s) Smoking Status:? Never smoker alcohol intake:? current alcohol intake frequency: holidays/special occasions only details:? not while substance use type:? does not use caffeine:? Yes (minimal) what type of physical activity do you participate in:? walking frequency:? 3-4 times per week seatbelt use:? always do you feel safe at home:? 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 ? ? 2 ? Elective abortions ? Hx Para ? ? ? 0 ? Spontaneous abortions ? ? ? 1 Hx # Term Pregnancies ? Ectopic pregnancies ? Hx # Pregnancies ? Multiple births ? # of living children ? HPI est ob 38w/NST Details: JESUS VIVEROS is a 32 year old who presents for routine OB visit. OB Visit CAROLYN Calculator ? Estimated Delivery Date Method Current Current Estimate 02/23/22 Ultrasound #1 38w 1d Expected Delivery Route/Plan Labor Preferences- CB/BF classes: encouraged labor support person: Eduard labor intervention preferences: [] pain management options preferred:open to what is needed cut cord/dad catch: no : yes PP control planned: discussed discussed possible routes of delivery and associated risks: [] special requests: [] Specific Issue/Plans Covid status: discussed Flu vaccine: discussed Tdap vaccine: declines Rhogam: na LARC form signed: yes Problem list reviewed and updated with the most current plan of care details and appropriate orders placed.? Relevant counseling for the gestational age provided. Continue routine care and follow up unless otherwise noted in visit notes/problem list details Initial Weight:?Not Recorded Date -?-?-?-?-?-?-?-?-?-?-?-?- EGA Weight BP Urine Prot -?-?-?-?-?-?-?-?-?-?--?-?- Glucose FHR FuHt Pres Dilation -?-?-?-?-?-?-?-?-?-?-?-?- Effaced St Visit Note 07/20/21-?-?-?-?-?-?-?-?-?-?-?-?- 8w 6d 117.707 kg 124/87 -?-?-?-?-?-?-?-?-?-?-?-?- ? 180 ? ? -?-?-?-?-?-?-?-?-?-?-?-?- ? ? JV- rpt ultrasound today still consistent with LMP. had early scan at [facility]. h/o miscarriage. declines genetic screening and up to date on pap. 08/19/21-?-?-?-?-?-?-?-?-?-?-?-?- 13w 1d 118.388 kg 132/80 Negative -?-?-?-?-?-?-?-?--?-?-?-?- Negative 150 ? ? -?-?-?-?-?-?-?-?-?-?-?-?- ? ? SM- no vb cramping feeling good 09/14/21-?-?-?-?-?-?-?-?-?-?-?-?- 16w 6d 118.955 kg 132/80 Negative -?-?-?-?-?-?-?-?-?-?-?-?- Negative 161 ? ? -?-?-?-?-?-?-?-?-?-?-?-?- ? ? MH-No VB, LOF. Feels well. MFM US ordered 10/14/21-?-?-?-?-?-?-?-?-?-?-?-?- 21w 1d 121.109 kg 118/76 -?-?-?-?-?-?-?-?-?-?-?-?- ? 150 22 ? -?-?-?-?--?-?-?-?-?-?-?-?- ? ? JV- no lof ,vaginal bleeding, or dec. waiting on rpt ultrasound due to inadequate views 11/11/21-?-?-?-?-?-?-?-?-?-?-?-?- 25w 1d 122.527 kg 137/85 -?-?-?-?-?-?-?-?-?-?-?-?- ? 154 25 ? -?-?-?-?-?-?-?-?-?-?-?-?- ? ? JV- no lof, vaginal bleeding, or cramping. 2nd gct needed next week. 12/02/21-?-?-?-?-?-?-?-?-?-?-?-?- 28w 1d 124.341 kg 138/84 Negative -?-?-?-?-?-?-?-?-?-?-?-?- Negative 148 28 ? -?-?-?-?-?-?-?-?-?-?-?-?- ? ? JV- 2 hr post prandials are all under 120, fasting levels are starting to go up to 110 however. she will meet with the nutritional chemist on sunday and if after meeting with them if fasting glucose levels are still high, will refer to Dr. Momin to start medication. 12/16/21-?-?-?-?-?-?-?-?-?-?-?-?- 30w 1d 123.037 kg 136/86 Negative -?-?-?-?-?-?-?-?-?-?-?-?- Negative 147 32 ? -?-?-?-?-?-?-?-?-?-?-?-?- ? ? JV- fasting glucose levels are all over 105 and nutrion specialist's advice made glucose levels go up- per pt. will consult Dr. Momin for insulin. 12/28/21-?-?-?-?-?-?-?-?-?-?-?-?- 31w 6d 121.818 kg 122/84 Negative -?-?-?-?-?-?-?-?-?--?-?-?- Negative 160 33 ? -?-?-?-?-?-?-?-?-?-?-?-?- ? ? MH-No Vb, LOF. Good FM. Now on insulin and BS improving.? Has growth US 01/02, will add BPP and also start twice weekly testing. 01/19/22-?-?-?-?-?-?-?-?-?-?-?-?- 35w 0d 122.186 kg 130/84 Negative -?-?-?-?-?-?-?-?-?-?-?-?- Negative 135 ? ? -?-?-?-?-?-?-?-?-?-?-?-?- ? ? SM- no vb lof good fm no regular ctx 01/27/22-?-?-?-?-?-?-?-?-?-?-?-?- 36w 1d 124.398 kg 133/80 Negative -?-?-?-?-?-?-?-?-?-?-?-?- Negative 140 36 ? -?-?-?-?-?-?-?-?-?-?-?-?- ? ? JV- no lof, vaginal bleeding, or dec fm. KORI 6.5 on 01/23 and breech with bpp 09/12. reactive nst today. rpt kori on 01/30 and decide if candidate for version. pt does not seem to be interested however 02/03/22-?-?-?-?-?-?-?-?-?-?-?-?- 37w 1d 122.186 kg 138/85 Negative -?-?-?-?-?-?-?-?-?-?-?-?- Negative 140 37 Breech -?-?-?-?-?-?-?-?-?-?-?-?- ? ? SM- no vb lof good fm no regular ctx 02/10/22-?-?-?-?-?-?-?-?-?-?-?-?- 38w 1d 122.98 kg 123/84 Negative -?-?-?-?-?-?-?-?-?-?-?-?- Negative ? ? ? -?-?-?-?-?-?-?-?-?-?-?-?- ? ? ? ACOG First Trimester First Trimester: Desire for , Alcohol, Tobacco Cessation, Illicit/Recreational Drug/Substance Use, Intimate Partner Violence, Barriers to care, Unstable Housing, Communication Barriers, Environmental/Work Hazards, Anticipated Course of Care, Toxoplasmosis Precations, Use of Any medications, Sexual activity, Exercise, Dental Care, Sauna/Hot tub use, Seat Belt use, Childbirth classes/Hospital facilities, Travel, Indications for Ultrasound and Screening for Aneuploidy; Discussed Second Trimester Second Trimester: Signs and Symptoms of Labor, Selecting a care provider, Reproductive Life Planning & Contreception, Care Planning, Depression/Anxiety and Intimate Partner Violence; Discussed Tobacco Cessation Third Trimester Third Trimester: Pain Management Plans, Labor support person(s), Immediate Larc, Circumcision preference, Movement Monitoring, Signs and Symptoms of Preeclampsia, Education and Family Medical Leave or Disability Forms Diagnostics Diagnostics Diagnostics: ?? ? No Data to Display Details: HIV: Urine Culture: Sequential Screen: NIPT Screen: ROS Const Reports system reviewed and no additional complaints, except as documented Card Reports system reviewed and no additional complaints, except as documented Resp Reports system reviewed and no additional complaints, except as documented GI Reports system reviewed and no additional complaints, except as documented and Reports nausea Reports system reviewed and no additional complaints, except as documented Musc Reports system reviewed and no additional complaints, except as documented Exam Const General: cooperative, healthy appearing, comfortable and anxious [facility] Head: normal to inspection Nose: external nose normal Face and sinus: normal facial exam Neck Neck: normal visual inspection, full ROM and no lymphadenopathy Thyroid: thyroid normal Chest Chest palpation & inspection: normal inspection of the chest Resp Effort & Inspection: normal respiratory effort GI Inspection: normal to inspection Palpation: soft and other (gravid uterus) Other: vertex and appropriate size for gestational age Other: Cervical Exam: Extrem General: pedal edema Results POC Urinalysis 2 Dip? (Clinic) Office Urine Glucose Negative ? ? Last Edit by Kaitlin Mireles on 02/10/22 15:27 Office Urine Protein Negative ? ? Last Edit by Kaitlin Mireles on 02/10/22 15:27 Coding Diagnoses Breech presentation? O32.1XX0 KORI (amniotic fluid index) borderline low? O28.8 Need for Tdap vaccination? Z23 Gestational diabetes mellitus (GDM)? O24.419 Obesity affecting ? O99.210 ? Z3A.37 ? ? ? Weeks of gestation: 37 weeks Supervision of other normal ? Z34.80 Lab test positive for detection of COVID-19 virus? U07.1 Generalized anxiety disorder? F41.1 Assessment and Plan Assessment and Plan (1) Breech presentation: ?Status:?Acute ?Comment: PLTCS scheduled 02/16/22 @ 12 with SM (2) KROI (amniotic fluid index) borderline low: ?Status:?Acute ?Comment: 6.4 on 01/23- will rpt 01/30 (3) Need for Tdap vaccination: ?Status:?Acute ?Comment: Given 12/02/21 (4) Gestational diabetes mellitus (GDM): ?Status:?Acute ?Comment: nutrition consult. on INSULIN, 01/09 BPP nl, 01/23 nl BPP. 01/31 nl BPP, 02/07/22 nl BPP. deliver at 39 weeks. (5) Obesity affecting : ?Status:?Acute ?Comment: BMI 40. 1 tm gct ordered.? encouraged healthy weight gain (6) : ?Status:?Acute ?Qualifiers: ?Weeks of gestation:?37 weeks? Qualified Code(s):?Z3A.37 - 37 weeks gestation of ?Comment: GBS negative, anatomy nl, repeat spine views in 2 wks.? offered AFP screening if desired. declines carrier/genetic screen;no (7) Supervision of other normal : ?Status:?Acute ?Comment: PRR CAROLYN 02/23/22 Sp:Edurad (8) Lab test positive for detection of COVID-19 virus: ?Status:?Acute ?Comment: 81mg asa, 32 & 36 wk US (9) Generalized anxiety disorder: ?Status:?Acute ?Comment: zoloft. stable UPDATE- I have seen the patient and performed any clinically relevant updates to the history and physical exam. Lorraine Winston MD plan LTCS for [facility]
--- NOTE | 2022-02-16 22:44 | PCM.DC ---
Discharge Instructions Diet Discharge Diet: No restrictions Activity Discharge Activity: Return to Normal Activity, May Drive (when pain free and off narcotic pain meds), May Shower and May Take a Tub Bath (in 4 weeks) May resume sexual activity in: 6 weeks Weight Bearing Status: Full weight bearing Lifting Restrictions: under 30 lbs for 6 weeks Dressing / Incision Call your doctor if your incision/area has: Continuous Slow Oozing, Sudden Increased Bleeding, Increased Pain/ Swelling, Increased Redness, Foul Smelling Discharge and - Call your doctor if you observe: Fever of 101 or Higher, Using more than 1 pad per hour, Shortness of breath, Chest pain and Uncontrolled pain Suture Line Care: Avoid Pulling/Pushing and Avoid Pinching/Bending Change Dressing in: 1 week (leave open to air after removed) Remove Dressing in: 1 week (if present) Cleanse incision/area with: Soap & Water and Keep Dressing Clean & Dry Follow Up Care Please Follow Up With: Lorraine Winston MD When: Call to make an appointment with your doctor for a postop visit in 2 and 6 weeks. Test Results: Test results from this visit will be discussed in further detail at your follow-up appointment, if applicable. Discharge Plan Admission Admit Date/Time: 02/16/22 09:35 Attending Provider: Lorraine Winston Primary Care Provider: Isidra Mixon NP Discharge Orders/Prescriptions Prescriptions: New oxycodone-acetaminophen [Percocet] 5-325 mg tablet 1 tab PO Q6H PRN (Reason: pain) 7 Days Qty: 20 0RF naproxen 250 mg tablet 250 - 500 mg PO Q8H PRN PRN (Reason: MILD PAIN) Qty: 30 1RF Continued prenat.vits,lizzeth,pqf-dmib-pwxbr Tablet 1 tab PO DAILY omeprazole magnesium [Prilosec OTC] 20 mg tablet,delayed release (DR/EC) 20 mg PO DAILY cholecalciferol (vitamin D3) 125 mcg (5,000 unit) capsule 125 mcg PO DAILY Novolin N NPH U-100 Insulin 100 unit/mL suspension 30 unit subcut QPM aspirin [Anneliese Chewable Aspirin] 81 mg tablet,chewable 81 mg PO DAILY sertraline [Zoloft] 50 mg tablet 50 mg PO DAILY (DME) lancets Misc See Rx Instructions .MEDSUPPLY Qty: 100 4RF Rx Instructions: As directed (DME) blood-glucose meter Misc See Rx Instructions miscellaneous .MEDSUPPLY Qty: 1 0RF Rx Instructions: As directed (DME) lancets Misc See Rx Instructions .MEDSUPPLY Qty: 100 4RF Rx Instructions: As directed (DME) Blood Glucose Test Strip See Rx Instructions .Route Qty: 150 6RF Rx Instructions: As directed (DME) blood-glucose meter [Accu-Chek Guide Me Glucose Mtr] Misc See Rx Instructions .ROUTE .COMPLEX Qty: 1 0RF Dose Instruction: DIRECTED Rx Instructions: DIRECTED (DME) Blood Glucose Test Strip See Rx Instructions .Route Qty: 150 6RF Rx Instructions: 4 times daily, Accu-chek guide Referrals / Follow Up: Isidra Mixon NP, [employer] [Primary Care Provider] -
[2022-02-17] VITALS (10 sets, daily range): BP systolic 113–131; BP diastolic 68–76; PULSE 70–84; RESP 16–18; TEMP 36.4–36.6; O2SAT 96–100
--- NOTE | 2022-02-17 00:33 | NURSING ---
Patient's baby is in the process of being transferred to the [facility] now. Patient educated on pumping at least every 3hrs for 20mins around the clock. Pump supplies explained. Pump set up for patient. Optimal pump settings explained. How to clean the pump explained. Pumping initiated at 00:10. This IBCLC stayed at bedside for 15minutes of this pumping session. Mother felt comfortable finishing this pumping session independently and cleaning her pump once finished. Father at bedside at this time. Parents have no questions or concerns.
[2022-02-17] MEDS: Enoxaparin 40 MG/0.4 ML Syringe SC (01:39)
[2022-02-17] MEDS: 0.9% Saline Lock 10 ML Syringe IV ×2 (02:33→08:26)
[2022-02-17] MEDS: Ketorolac 30 MG/ML Syringe IV ×2 (02:33→08:25)
[2022-02-17 05:05] LABS: Hematocrit 32.7 % (37-47); Hemoglobin 10.7 g/dL (12.0-15.0); Mean Corp Hgb Conc 32.7 g/dL (32-36); Mean Corpuscular Hgb 31.2 pg (27.0-32.0); Mean Corpuscular Volume 95.3 fL (81-99); Mean Platelet Vol. 8.9 fl (6.2-12.0); Platelet Count 214 K/mm3 (150-450); RBC Distribution Width CV 13.1 % (11.6-14.6); RBC Distribution Width SD 45.6 fl (35.1-43.9); Red Blood Count 3.43 M/mm3 (4.2-5.4); White Blood Count 16.1 K/mm3 (4.4-11.0)
[2022-02-17] MEDS: Acetaminophen 500 MG Tablet 1000 MG PO ×3 (05:27→18:10)
--- NOTE | 2022-02-17 06:18 | PCM.PN.OB ---
Subjective Subjective Patient doing well without complaints. Tolerating PO. Ambulating and voiding without difficulty. feeding well. Denies chest pain, shortness of breath, calf pain/swelling, fevers, chills, lightheadedness. Objective Data Objective Data Vital Signs: Vital Signs Temp Pulse Resp BP Pulse Ox O2 Del Method 97.5 F L 72 16 122/68 H 97 Room Air 02/17/22 04:20 02/17/22 04:20 02/17/22 04:20 02/17/22 04:20 02/17/22 04:20 02/17/22 04:20 Oxygen Delivery Method Room Air Weight: 121 kg Body Mass Index (BMI) 40.5 Intake & Output: Intake and Output for Last 24 Hours 02/15/22 02/16/22 02/17/22 23:59 23:59 23:59 Intake Total 1717.5 / 1717.5 918.33 / 918.33 Output Total 300 / 300 600 / 600 Balance 1417.5 / 1417.5 318.33 / 318.33 Lab / Micro Data Result Diagrams: 02/17/22 04:50 Labs: Laboratory Results - last 24 hr 02/16/22 09:55: POC Glucose 186 H 02/16/22 10:15: WBC 11.9 H, RBC 4.16 L, Hgb 12.9, Hct 39.5, MCV 95.0, MCH 31.0, MCHC 32.7, RDW Std Deviation 46.3 H, RDW Coeff of Jun 13.2, Plt Count 216, MPV 8.8, Immature Gran % (Auto) 0.300, Neut % (Auto) 74.5 H, Lymph % (Auto) 21.0, [place] % (Auto) 3.0, Eos % (Auto) 1.0, Baso % (Auto) 0.2, Absolute Neuts (auto) 8.8 H, Absolute Lymphs (auto) 2.50, Nucleated RBC % 0 02/16/22 10:15: Blood Type O POSITIVE, Antibody Screen NEGATIVE 02/16/22 11:00: POC Glucose 93 02/16/22 14:02: POC Glucose 80 02/17/22 04:50: WBC 16.1 H, RBC 3.43 L, Hgb 10.7 L, Hct 32.7 L, MCV 95.3, MCH 31.2, MCHC 32.7, RDW Std Deviation 45.6 H, RDW Coeff of Jun 13.1, Plt Count 214, MPV 8.9 ROS Constitutional Constitutional: Reports systems reviewed and no addt'l complaints, except as documented Cardiovascular Cardiovascular: Reports systems reviewed and no addt'l complaints, except as documented Respiratory/Chest Respiratory/Chest: Reports systems reviewed and no addt'l complaints, except as documented Gastrointestinal Gastrointestinal: Reports systems reviewed and no addt'l complaints, except as documented Physical Exam Const alert, oriented x3 and no apparent distress HEENT Head and Scalp: atraumatic Resp normal respiratory effort GI soft to palpation and non-tender Inspection: incision intact, healing well and drainage (none) Bimanual Exam - Vag & Uterus: uterus non-tender Uterus Palpation: uterus fundus firm (below Umbilicus) Assessment & Plan (1) Gestational diabetes mellitus (GDM): COMMENT: only, was on insulin. check PPD 1 fasting plan 6 weeks 2 hr GTT (2) Generalized anxiety disorder: COMMENT: zoloft. stable (3) delivery delivered: COMMENT: boy 39 ltcs breech gdma2 gage PLAN: Plan s/p LTCS PPD # 1 1. routine post care 2. breast feeding- support given 3. rh positive 4. rubella immune
[2022-02-17 06:40] LABS: Bedside Glucose 94 mg/dL (74-106)
[2022-02-17] MEDS: Senna/Docusate Sodium 1 Tablet PO (12:28)
[2022-02-17] MEDS: Ibuprofen 600 MG Tablet PO ×2 (15:15→21:24)
[2022-02-17] MEDS: oxyCODONE 5 MG Tablet PO (15:18)
[2022-02-17] MEDS: Sertraline 50 MG Tablet PO (21:24)
[2022-02-18] MEDS: Acetaminophen 500 MG Tablet 1000 MG PO ×3 (00:14→11:46)
[2022-02-18] MEDS: oxyCODONE 5 MG Tablet PO (00:24)
[2022-02-18 03:25] VITALS: BP 132/81; RESP 18; TEMP 36.3
[2022-02-18] MEDS: Ibuprofen 600 MG Tablet PO ×3 (03:27→14:43)
[2022-02-18] MEDS: Enoxaparin 40 MG/0.4 ML Syringe SC (03:28)
[2022-02-18] MEDS: Senna/Docusate Sodium 1 Tablet PO (08:53)
--- NOTE | 2022-02-18 08:53 | DS.PCM_ITS ---
Providers Date of Admission: 02/16/22 Primary Care Physician: KATI Green Reason For Visit: PRIMARY C SECTION Diagnosis Discharge Diagnosis (1) Gestational diabetes mellitus (GDM): Status: Acute Code(s): O24.419 - Gestational diabetes mellitus in , unspecified control (2) Generalized anxiety disorder: Status: Acute Code(s): F41.1 - Generalized anxiety disorder (3) delivery delivered: Status: Acute Code(s): O82 - Encounter for delivery without indication Medications at Discharge Home Medications cholecalciferol (vitamin D3) 125 mcg (5,000 unit) capsule 125 mcg PO DAILY Check with primary doctor 02/25/21 omeprazole magnesium 20 mg tablet,delayed release (Prilosec OTC) 20 mg PO DAILY Check with primary doctor 02/25/21 prenat.vits,lizzeth,iiq-xang-mwqvi 1 tab PO DAILY Check with primary doctor 02/25/21 lancets #100 ea 11/24/21 blood-glucose meter #1 ea 11/25/21 lancets #100 ea 11/25/21 blood sugar diagnostic (Blood Glucose Test strips) #150 ea 12/05/21 aspirin 81 mg chewable tablet (Anneliese Chewable Low Dose Aspirin) 81 mg PO DAILY Check with primary doctor 12/22/21 blood-glucose meter (Accu-Chek Guide Me Glucose Meter) ##1 12/26/21 insulin NPH isoph U-100 human 100 unit/mL subcutaneous suspension (Novolin N NPH U-100 Insulin isophane) 30 unit subcut QPM Check with primary doctor 01/19/22 blood sugar diagnostic (Blood Glucose Test strips) #150 ea 01/31/22 naproxen 250 mg tablet 250 - 500 mg PO Q8H PRN PRN MILD PAIN #30 tabs 02/16/22 oxycodone-acetaminophen 5 mg-325 mg tablet (Percocet) 1 tab PO Q6H PRN pain 7 days #20 tabs 02/16/22 sertraline 50 mg tablet (Zoloft) 50 mg PO DAILY Check with primary doctor 02/16/22 Hospital Course Operations section Summary of Care Provided Minutes Spent on Discharge: 15 Hospital Course: The patient was admitted to labor and delivery on 02/16/22 for a repeat section. She recovered well on her first post day however baby required supplemental glucose and was admitted to special care. on post day #2 she patient is doing well without complaints. Tolerating PO. Ambulating and voiding without difficulty. Feeding well. Denies chest pain, shortness of breath, calf pain/swelling, fevers, chills, lightheadedness. She is requesting discharge as soon as baby is able to go home. plan to discharge now in anticipation for her infant's release soon. Physical Exam HEENT normocephalic Resp normal respiratory effort and normal air movement GI soft to palpation, non-tender and non-distended Rectal Exam: other Other Details: Incision is clean, dry, and intact no CVA tenderness Extremity normal to inspection General Extremity: edema bilateral (trace ) Weight / BMI Weight Weight: 266 lb 12.149 oz Body Mass Index (BMI) 40.5 ABG / Lab / Microbiology Data Result Diagrams: 02/17/22 04:50 D/C Instructions Discharge Diet: No restrictions May resume sexual activity in: 6 weeks Weight Bearing Status: Full weight bearing Call your doctor if your incision/area has: Continuous Slow Oozing, Sudden Increased Bleeding, Increased Pain/ Swelling, Increased Redness, Foul Smelling Discharge and - Call your doctor if you observe: Fever of 101 or Higher, Using more than 1 pad per hour, Shortness of breath, Chest pain and Uncontrolled pain Suture Line Care: Avoid Pulling/Pushing and Avoid Pinching/Bending Cleanse incision/area with: Soap & Water and Keep Dressing Clean & Dry Please Follow Up With: Lorraine Winston MD When: Call to make an appointment with your doctor for a postop visit in 2 and 6 weeks. Meaningful Use Info Meaningful Use Diagnoses (Choose all that apply): None applicable Discharge Plan Admission Admit Date/Time: 02/16/22 09:35 Primary Reason for Your Visit: section Attending Provider: Lorraine Winston Primary Care Provider: Isidra Mixon NP Discharge Orders/Prescriptions Prescriptions: New oxycodone-acetaminophen [Percocet] 5-325 mg tablet 1 tab PO Q6H PRN (Reason: pain) 7 Days Qty: 20 0RF naproxen 250 mg tablet 250 - 500 mg PO Q8H PRN PRN (Reason: MILD PAIN) Qty: 30 1RF Continued prenat.vits,lizzeth,[id number]-ljccx Tablet 1 tab PO DAILY omeprazole magnesium [Prilosec OTC] 20 mg tablet,delayed release (DR/EC) 20 mg PO DAILY cholecalciferol (vitamin D3) 125 mcg (5,000 unit) capsule 125 mcg PO DAILY Novolin N NPH U-100 Insulin 100 unit/mL suspension 30 unit subcut QPM aspirin [Anneliese Chewable Aspirin] 81 mg tablet,chewable 81 mg PO DAILY sertraline [Zoloft] 50 mg tablet 50 mg PO DAILY (DME) lancets Misc See Rx Instructions .MEDSUPPLY Qty: 100 4RF Rx Instructions: As directed (DME) blood-glucose meter Misc See Rx Instructions miscellaneous .MEDSUPPLY Qty: 1 0RF Rx Instructions: As directed (DME) lancets Misc See Rx Instructions .MEDSUPPLY Qty: 100 4RF Rx Instructions: As directed (DME) Blood Glucose Test Strip See Rx Instructions .Route Qty: 150 6RF Rx Instructions: As directed (DME) blood-glucose meter [Accu-Chek Guide Me Glucose Mtr] Misc See Rx Instructions .ROUTE .COMPLEX Qty: 1 0RF Dose Instruction: DIRECTED Rx Instructions: DIRECTED (DME) Blood Glucose Test Strip See Rx Instructions .Route Qty: 150 6RF Rx Instructions: 4 times daily, Accu-chek guide Referrals / Follow Up: Isidra Mixon NP, [employer] [Primary Care Provider] - Disposition Disposition (needs filled in before D/C Order can be placed): Home, Self Care
[2022-02-18 08:55] VITALS: BP 136/83; PULSE 74; RESP 15; TEMP 36.4; O2SAT 99
[2022-02-18 13:21] VITALS: BP 131/92; PULSE 78; RESP 15; TEMP 36.6; O2SAT 100
--- NOTE | 2022-02-18 14:34 | CASEMGMT ---
Social Work Brief Assessment Labor and Delivery Unit Patient Address: [address], [place] [id number] Phone number: [phone] Date of Referral/Notification: 02/16/2022 Time of Referral: 1502 Referred By: Dr. Lorenzo Turner Date of Intervention: 02/18/2022 Time of Intervention: Approximately [id number] Reason for Referral: Maternal anxiety Informant: Medical record and mother of baby (MOB) Rachna Brown; father of baby (FOB) Eduard Stephanie present for part of conversation. MOB's mother also joined conversation near the end. History: PARK is a 32-year-old female, to the [facility] for about 12 and half years. During private conversation, MOB denied any type of abuse or safety concerns in the marriage. baby is the first child for parents. baby boy is to be named Jai (02/16/2022). PARK is 2, para 0 now 1 reporting to this specification writer a miscarriage in March 2021. PARK reports that with some fertility issues, gestational diabetes during this and then delivery resulted in a section. care was good starting at 8 weeks gestation. Jai weighed 7 pounds 8 ounces at . Apgars 8 and 9. Infant has been admitted into the [facility] nursery for issues related to hypoglycemia. PARK and FOBacilio are both college-educated. FOBacilio works as a [employer] filteration operator for [employer]. PARK works at [employer]. PARK reports that she has some depression but mostly generalized anxiety and is currently treated with Zoloft. PARK reports the FO also deals with depression and anxiety and is also on medication. No reports of any type of substance use issues for either parent. Maternal drug screen was negative on 08/03/2021. Assessment: Met with MOB and FOB in room, introducing to self and social work role, including being a elementary school social worker for [employer] and then for continuity of care of families admitted into the special care nursery also providing social work services to the special care nursery. Parents cooperative, pleasant, and willing to speak with elementary school social worker. FOB and PARK's mother did leave the room near the end of conversation when this specification writer administered [place] depression screen. Scores a 5 falling below the threshold for any current depression/anxiety. MOB was talkative, good eye contact, and open to conversation about emotional health issues. MOB reports to feel she has a good support system from the FOB, MOB's mother who is up for a couple of weeks staying with them, and then MOB sister will be staying. The MOB's in-laws also live close by. MOB reports access to a good female friend and a shinto family. MOB will be able to help work off for 12 weeks and the FOB has the next week off to also help. MOB and FOB reported to have all supplies needed for the baby. No concerns about home going however both are aware about risk for mood and anxiety disorders. Educated to mood and anxiety disorders, risk factors, and that both mothers and fathers are at risk for such. Provided written material for home-going including resources that parents contact into. Reviewed shaken baby prevention and safe sleeping and local resources to their home county providing parent support. Written material provided on that as well. Plan: MOB and will discharge home when ready. Resources have been provided. No further needs requested or indicated. -CLEMENTINA Barahona MSW *This note was generated with [employer] software. It may contain incorrect words, spelling, and punctuation that were not noted in review of the chart prior to signing*
== END 2022-02-18 16:00 | disposition home or self-care (01) | DRG 788 ==
PROVIDERS: Admitting Provider Obstetrics & Gynecology; PCP Nurse Practitioner Family; Visit Provider Obstetrics & Gynecology
PROC: 10D00Z1 Extraction of Products of Conception, Low, Open Approach (ICD-10-PCS; CPT 59514; principal; 2022-02-16 11:45)
DX: O41.03X0 Oligohydramnios, third trimester, not applicable or unspecified (principal); E66.9 Obesity, unspecified; O24.424 Gestational diabetes mellitus in childbirth, insulin controlled; F41.1 Generalized anxiety disorder; O32.1XX0 Maternal care for breech presentation, not applicable or unspecified; O99.344 Other mental disorders complicating childbirth; O99.214 Obesity complicating childbirth; Z79.82 Long term (current) use of aspirin; Z3A.38 38 weeks gestation of pregnancy; Z37.0 Single live birth
CPT/HCPCS: 59025; 59050; 82962; 85025; 85027; 86850; 86900; 86901; 99221; 99252; J7120; A4216; G0378; G0463; J2405